=== PATIENT | male | born 1975 | race Two or more races ===

== ENCOUNTER 2024-10-17 14:06 | Emergency (ER) | payer BC, SELFPAY ==
[2024-10-17 14:07] VITALS: BMI 25.0
[2024-10-17 14:43] VITALS: BP 153/97; PULSE 76; RESP 18; TEMP 37; O2SAT 98
--- NOTE | 2024-10-17 15:43 | PD.EDHAND ---
Upper Extremity Injury RME/HPI General Chief Complaint: Hand/Wrist Problems Stated Complaint: L) HAND IMPALED W/ CATFISH WILL Time Seen by Provider: 10/17/24 15:38 Source: patient Arrival date/time: 10/17/24 14:06 Mode of arrival: ambulatory Limitations: no limitations RME / HPI RME / HPI narrative: 49-year-old male presents to urgent care with complaint of being impaled by a catfish yesterday. Patient attempted to remove the catfish from his left hand at the area of the snuffbox however he was able to feel the resistance due to the barbs of the catfish. Patient tells me that his left hand and left arm began to swell causing him great concern. The swelling has resolved somewhat and he continues to have range of motion of his left upper extremity. His left hand at the snuffbox continues to be sore. complaint: injury to: left Onset (ago): day(s) (Yesterday) Other Extremity Injury: Left: hand (At the snuffbox) Other injuries: none Place: outdoors (At the ge) Severity: moderate Severity scale (1-10): 5 Relieving factors: none Exacerbating factors: immobilization Context: other (Catfish impaled the patient's left hand) Associated symptoms: numbness Related Data Previous Rx's ?Medication ?Instructions ?Recorded diphenoxylate-atropine 2.5 1 tab PO TID PRN diarrhea #7 tabs 09/15/19 mg-0.025 mg tablet (Lomotil) ondansetron HCl 4 mg tablet 4 mg PO Q8H PRN nausea and 09/15/19 (Zofran) vomiting #10 tabs levofloxacin 500 mg tablet 500 mg PO Q24H #10 tabs 10/17/24 metronidazole 500 mg tablet 500 mg PO Q8H PRN Bacterial 10/17/24 infection 7 days #21 tabs Allergies Allergy/AdvReac Type Severity Reaction Status Date / Time No Known Allergies Allergy Verified 10/17/24 14:11 Review of Systems Constitutional Constitutional: Reports system reviewed and no additional complaints, except as documented Eyes Eyes: Reports system reviewed and no additional complaints, except as documented, Denies dry eyes, Denies exophthalmos and Reports floaters Cardiovascular Cardiovascular: Denies chest pain with activity and Denies claudication ED Exam Narrative Physical exam: On the left hand at the snuffbox positive for a puncture wound which appears to be surrounded by erythema, it takes on somewhat of a purpleish hue. It is tender to palpation. Patient retains full range of motion of all digits of the left hand and he can make a fist. Patient has full range of motion at the wrist. There is some edema present when compared to the right hand. There is no apparent neurofocal deficit present. There is no lymphangitic streaks. The lymph nodes of the left axilla are not tender to touch and nor the palpable. General Limitations: Present no limitations General appearance: Present alert and in no apparent distress Head Head exam: Present atraumatic Eye Eye exam: Present normal appearance and EOMI ENT ENT exam: Present normal exam, normal oropharynx and mucous membranes moist Neck Neck exam: Present normal inspection, full ROM and trachea midline Extremities Exam Extremities exam: Present normal inspection and full ROM Back Exam Back exam: Present normal inspection and full ROM Neurological Exam Neurological exam: Present alert and oriented X3 Psychiatric Psychiatric exam: Present normal affect and normal mood Skin Skin exam: Present warm, dry, intact and normal color (As described above.) Course Course Course Narrative: CBC CMP and Ancef 1 g IM. X-ray left hand. Quality Measures none Orders Category Date Time Status XR hand LT 2V Stat Exams 10/17/24 15:54 Completed CBC Stat Lab 10/17/24 16:01 Completed CMP [Comprehensive Metabolic Panel] Stat Lab 10/17/24 16:01 Completed ceFAZolin [Ancef] 1 gm Med 10/17/24 15:54 Discontinued Sterile Water 2.5 ml IM X1 DONE Vital Signs Vital signs: Vital Signs Temperature 98.6 F 10/17/24 14:43 Pulse Rate 76 10/17/24 14:43 Respiratory Rate 18 10/17/24 14:43 Blood Pressure 153/97 H 10/17/24 14:43 Pulse Oximetry (%) 98 10/17/24 14:43 Oxygen Delivery Method Room Air 10/17/24 14:43 Pulse ox room air 98% Extremity Injury MDM Narrative MDM Narrative:: Patient will have 1 g of Ancef while he is here, he will be discharged in no apparent distress. [facility] for follow-up to today's visit. If he is worse or not better he may return here. Patient will be discharged in no apparent distress. Patient data External records reviewed:: Other (specify) Clinical information provided by:: none (NA) Social determinants that could affect healthcare access:: none (NA) Patient has the following chronic illnesses:: Denies chronic disease How is presenting disease/condition affected by chronic disease/condition?: caused by (Catfish stinger) Evaluation data The following diagnostics were reviewed and interpreted by me:: lab results (NA) Lab and/or radiology exams considered but not ordered:: NA Interpretation Summary: BNA Medications / Prescriptions Medications or Prescriptions considered but not ordered:: NA Medication administrations:: Medication Administration History Discontinued Medications Cefazolin Sodium 1 gm/ Sterile (Water 2.5 ml) 0 gm IM X1 ONE Stop: 10/17/24 15:55 NA Consultations Consultation(s) initiated? (list below): No Diagnosis Upper Extremity Injury Differential Diagnosis: sprain and strain of wrist, fracture of wrist, finger sprain, Colles' fracture and fracture of hand Most likely diagnosis given after review of the tests above:: NA Admission Indicated Admission indicated?: not indicated Explain why admission is indicated or not indicated:: NA Admission Request Was there a request for admission?: No Disposition Plan Disposition Plan: Discharge Discharge Attestation Discharge Attestation: The patient and all family members were given an opportunity to ask questions and understood the discharge instructions. Discharge instructions specifically effects, indications for sooner follow up or return to the emergency department, and the expected course of current diagnosis. Patient condition: Stable Discharge Plan Plan Patient Disposition: HOME (Self Care) Discharge Disposition comment: Discharge in no apparent distress Patient condition on transfer: Stable Prescriptions/Referrals Prescriptions/Med Rec: New metronidazole 500 mg tablet 500 mg PO Q8H PRN (Reason: Bacterial infection) 7 Days Qty: 21 0RF levofloxacin 500 mg tablet 500 mg PO Q24H Qty: 10 0RF No Action ondansetron HCl [Zofran] 4 mg tablet 4 mg PO Q8H PRN (Reason: nausea and vomiting) Qty: 10 0RF diphenoxylate-atropine [Lomotil] 2.5-0.025 mg tablet 1 tab PO TID PRN (Reason: diarrhea) Qty: 7 0RF Problem List Clinical Impression: Puncture wound Impression comment: Puncture wound secondary to cat fish stinger/will Patient/Caregiver Discharge Instructions Discharge Activity: activity as tolerated Print Language: Maltese Stand Alone Forms: Yuliana Award Info., Work/School Release, Patient Portal Info Letter PA/PEAR PICKER Supervising Physician PA/PEAR PICKER Supervising Physician: NICKOLAS
--- NOTE | 2024-10-17 15:54 | XR_ITS ---
Examination: Hand, 2 views left hand Technique: Hand AP, lateral 2 views Date and time of exam: October 17, 2024 1600 hours INDICATIONS: Puncture injury to the hand today, hand pain. FINDINGS: Air densities in the soft tissue between the first and second digits No opaque foreign bodies No fractures IMPRESSION: No opaque foreign bodies
[2024-10-17 16:44] LABS: Basophils # (Auto) 0.0 Thou/mm3 (0.0-0.2); Basophils % (Auto) 1 % (0-2.5); Eosinophils # (Auto) 0.1 Thou/mm3 (0.0-0.5); Eosinophils % (Auto) 1 % (0-10); Hematocrit 45.7 % (41.0-53.0); Hemoglobin 16.1 g/dL (13.5-16.0); Immature Granulocytes Auto 0.03 Thou/mm3 (0.00-0.00); Lymphocytes # (Auto) 2.1 Thou/mm3 (1.0-4.8); Lymphocytes % (Auto) 27 % (10-50); Mean Corpuscular HGB Conc 35.2 g/dl (31.0-37.0); Mean Corpuscular Hemoglobin 31.1 pg (25.0-35.0); Mean Corpuscular Volume 88 fL (80-100); Monocytes # (Auto) 0.7 Thou/mm3 (0.0-0.8); Monocytes % (Auto) 9 % (0-12); Neutrophils # (Auto) 5.0 Thou/mm3 (1.8-7.7); Neutrophils % (Auto) 63 % (37-80); Nucleated Red Blood Cell # 0.00 Thou/mm3 (0.00-0.00); Nucleated Red Blood Cell % 0 /100 WBC (0); Platelet Count 272 Thou/mm3 (140-440); RDW Standard Deviation 41.7 fL (35.1-43.9); Red Blood Count 5.18 Miln/mm3 (4.50-5.90); White Blood Count 7.9 Thou/mm3 (3.8-10.6)
[2024-10-17 17:04] LABS: Alanine Aminotransferase 51 U/L (10-49); Albumin, Serum 4.7 gm/dL (3.5-5.0); Albumin/Globulin Ratio 1.7 (1.2-2.2); Alkaline Phosphatase 88 U/L (46-116); Anion Gap 10 (7-16); Aspartate Amino Transferase 42 U/L (0-34); BUN/Creatinine Ratio 14 Ratio (12-20); Bilirubin,Total 0.6 mg/dL (0.3-1.2); Blood Urea Nitrogen 14 mg/dL (9-23); Calcium 9.2 mg/dL (8.3-10.6); Calcium (Corrected) 9.2 mg/dL (8.5-10.1); Carbon Dioxide 24.5 mMol/L (20.0-31.0); Chloride 108 mMol/L (98-107); Creatinine (Component) 1.0 mg/dL (0.6-1.3); Estimated Creatinine Clearance 98.1 mL/min (>60); Globulin 2.8 gm/dL (2.3-3.5); Glucose 113 mg/dL (74-106); Osmolality,Calculated 284 (275-295); Potassium 4.4 mMol/L (3.4-5.1); Sodium 142 mMol/L (136-145); Total Protein 7.5 gm/dL (5.7-8.2); eGFR > 60 See Note
[2024-10-17] MEDS: ceFAZolin 1 GM, Sterile Water 2.5 ML IM (17:27)
== END 2024-10-17 17:36 | disposition home or self-care (01) ==
LOC: SERX 16:24
PROVIDERS: Physician Assistant; Emergency Provider Emergency Medicine; PCP Internal Medicine
DX: S61.432A Puncture wound without foreign body of left hand, initial encounter (principal); X58.XXXA Exposure to other specified factors, initial encounter
CPT/HCPCS: 36415; 73120; 80053; 85025; 99283; A4216; J0690